=== PATIENT | female | born 1980 | race Native Hawaiian/Other Pacific Islander ===

== ENCOUNTER 2018-01-09 11:25 | Emergency (ER) | payer OTHER ==
[~2018-01-09] VITALS: Ht 160 cm; Wt 56.8 kg
[2018-01-09 11:36] VITALS: BP 138/65
== END 2018-01-09 14:07 | disposition home or self-care (01) ==
LOC: ED 11:25
DX: S05.02XA Injury of conjunctiva and corneal abrasion without foreign body, left eye, initial encounter (principal); X58.XXXA Exposure to other specified factors, initial encounter; Y93.89 Activity, other specified; Y92.89 Other specified places as the place of occurrence of the external cause; Y99.8 Other external cause status